=== PATIENT | male | born 1940 | race African-American/Black ===

== ENCOUNTER → 2016-09-18 | Day surgery (SDC) | payer MEDICARE, MEDICAID ==
[~2016-09-18] VITALS: Ht 175.3 cm; Wt 64.9 kg
[2016-09-18] VITALS (10 sets, daily range): BP systolic 108–176; BP diastolic 6–83
[~2016-09-18] MED LIST: AMLODIPINE BESY10 MG ORAL; AMLODIPINE BESY10 MG PO; ASPIRIN BUFFER325 M1 PO; BSS 15ml BTL ONE; BSS 500ml btl ONE; Bupivacaine 0.75% 30ml vial INJ ONE; CLONIDINE HCL0.1 MG PO; Ciprofloxacin Opth Soln ONE; Cyclopentolate 1% Opth Sol ONE; Dexamethasone 4mg/ml vial ONE; DiphenhydrAMINE 50mg/ml Inj IVP PRN; Goniosol 2.5% Opth Soln - 15ml ONE; Kenalog-40 1ml Vial ONE; LOPRESSOR25 M1 PO; Lidocaine 2% MPF 5ml Vial INJ ONE; Maxitrol Opth Oint 3.5gm ONE; Midazolam 2mg/2ml Inj ONE; NS Irrig 1000ml ONE; Phenylephrine 2.5% Op Soln ONE; Povidone-Iodine 5% opth solution ONE; Pred Forte 1% Opth Susp 1ml ONE; Proparacaine 0.5% Opth Soln 15ml ONE; Proparacaine 0.5% Opth Soln 15ml RIGHT EYE SCH; Propofol 10mg/ml 20ml IV ONE; RENAGEL800 MG; SENSIPAR60 MG PO; Sterile Water Irrig 1000ml IRRIG ONE; Tetracaine 0.5% Opth Soln ONE; Tropicamide 1% Opth Soln ONE; VIT D PO; fentaNYL 100 mcg/2 mL IV ONE; fentaNYL 100 mcg/2 mL IV PRN
[2016-09-18] MEDS: Tropicamide 1% Opth Soln RIGHT EYE SCH ×3 (07:37→07:51)
[2016-09-18] MEDS: Cyclopentolate 1% Opth Sol RIGHT EYE SCH ×3 (07:37→07:51)
[2016-09-18] MEDS: Phenylephrine 2.5% Op Soln RIGHT EYE SCH ×3 (07:37→07:51)
--- NOTE | 2016-09-18 08:20 | Pre-Procedure Note/Attestation ---
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 I attest that, if there was a reasonable possibility of needing a blood transfusion, the patient (or the patient's legal roofing sales representative) was given the [facility] standardized written summary, pursuant to the Salazar Huber Blood Safety Act ([place] Health and Safety Code # 1645, as amended). I attest that I re-evaluated the patient just prior to the surgery and that there has been no change in the patient's H&P, except as documented below: Sagar Freeman M.D. Sep 18, 2016 08:20
--- NOTE | 2016-09-18 08:23 | Brief Operative Note ---
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 Sep 18, 2016 08:23
--- NOTE | 2016-09-18 08:23 | Operative Note - PDOC ---
Operative Note Operative Note Pre-op Diagnosis: NCVH/PDR/possible TRD OD Procedure: PPV/EL/AFE/SF6 20% OD Post-op Diagnosis: NCH/PDR/severe retinal ischemia/CSME OD Surgeon: Pete Anesthesia: general Specimen: none Complications: none Condition: stable Estimated Blood Loss: minimal Drains: none Implant(s) used?: No Indications for Procedure The patient has vision loss due to proliferative diabetic retinopathy and NCVH and presents today for surgery. After review of the risks, benefits, alternative and the patient signed informed consent into the medical chart. The patient was met in the pre-op area where informed consent was reviewed. The operative eye was verified, marked and dilated. The patient was transferred to the operative suite, where cardiopulmonary monitoring was established and peribulbar anesthetic was administered without complications. The eye was prepped and draped in sterile ophthalmic fashion. Under microscope visualization the 23 gauge infusion line was placed inferotemporally. After visualization of the tip in the vitreous cavity, the infusion line was turned on. The superotemporal and superonasal cannulas were placed. Under ReSight visualization, peripheral and core vitrectomy was performed. As the vitreous was cleared, view of the posterior pole was improved. There were areas of neovascular tissue noted and severe peripheral vascular non-perfusion/ ischemia. Inspection of the posterior pole revealed macular exudates and edema. Further peripheral vitrectomy was performed and endolaser was applied to perform complete PRP. No iatrogenic breaks were noted. Air-fluid exchange was performed. Gas was infused into the eye. The cannulas were removed and sclerotomies were sutured. The eye maintained normal intraocular pressure. Subconjunctival vancomycin and dexamethasone were administered. The lid speculum was removed. The eye was cleaned of prep and drape. Atropine drop and Maxitrol ointment was applied. A pressure patch was placed. The patient was turned over to the anesthesia team and transferred in stable condition to the PACU. Description of Procedure The patient was met in the pre-op area where informed consent was reviewed. The operative eye was verified, marked and dilated. The patient was transferred to the operative suite, where cardiopulmonary monitoring was established and peribulbar anesthetic was administered without complications. The eye was prepped and draped in sterile ophthalmic fashion. Under microscope visualization the 23 gauge infusion line was placed inferotemporally. After visualization of the tip in the vitreous cavity, the infusion line was turned on. The superotemporal and superonasal cannulas were placed. Under ReSight visualization, peripheral and core vitrectomy was performed. As the vitreous was cleared, view of the posterior pole was improved. There were areas of neovascular tissue noted and severe peripheral vascular non-perfusion/ ischemia. Inspection of the posterior pole revealed macular exudates and edema. Further peripheral vitrectomy was performed and endolaser was applied to perform complete PRP. No iatrogenic breaks were noted. Air-fluid exchange was performed. Gas was infused into the eye. The cannulas were removed and sclerotomies were sutured. The eye maintained normal intraocular pressure. Subconjunctival vancomycin and dexamethasone were administered. The lid speculum was removed. The eye was cleaned of prep and drape. Atropine drop and Maxitrol ointment was applied. A pressure patch was placed. The patient was turned over to the anesthesia team and transferred in stable condition to the PACU. Sagar Freeman M.D. Sep 18, 2016 08:23
--- NOTE | 2016-09-18 08:45 | Anethesia Preoperative Eval ---
Anesthesia Pre-op PMH/ROS General Date of Evaluation: Sep 18, 2016 Time of Evaluation: 07:50 Anesthesiologist: Kuldeep ASA Score: ASA 3 Mallampati Score Class I : Soft palate, uvula, fauces, pillars visible Class II: Soft palate, uvula, fauces visible Class III: Soft palate, base of uvula visible Class IV: Only hard plate visible Mallampati Classification: Class II Surgeon: Pete Diagnosis: R eye vitreous hemorrhage Surgical Procedure: R eye PPV Anesthesia History: none Family History: no anesthesia problems Allergies: Coded Allergies: No Known Allergies (Verified , 08/18/13) Past Medical History Cardiovascular: Reports: HTN, Denies: CAD, NC, arrhythmia, other, valve dz Pulmonary: Denies: COPD, MARLIN, asthma, other Gastrointestinal/Genitourinary: Reports: ESRD - on HD last session 09/17, GERD, Denies: CRI, other Neurologic/Psychiatric: Reports: depression/anxiety, Denies: CVA, TIA, dementia, other Endocrine: Reports: DM - on insulin, Denies: hypothyroidism, other, steroids HEENT: Reports: cataract (L), cataract (R) Hematology/Immune: Reports: anemia, Denies: DVT, bleeding disorder, other Musculoskeletal/Integumentary: Reports: DJD, Denies: DDD, OA, RA, edema, other Other: other - malnourished PMH Narrative: as above PSxH Narrative: cataracts A/V shunt placement Anesthesia Pre-op Phys. Exam Physician Exam Last Vital Signs Date Time Temp Pulse Resp B/P Pulse Ox O2 Delivery O2 Flow Rate FiO2 09/18/16 07:52 98.6 73 18 166/73 100 Room Air Constitutional: NAD Neurologic: CN 2-12 intact Cardiovascular: RRR, no M/R/G Respiratory: CTA Gastrointestinal: S/NT/ND Airway Exam Mallampati Score: Class II MO: limited Neck: stiff ROM: limited Teeth: missing Dentures: no lower, no upper Anesthesia Pre-op A/P Studies Pre-op Studies: EKG - NSR Risk Assessment & Plan Assessment: ASA 3 Plan: GA with LMA Status Change Before Surgery: No Pre-Antibiotics Drug: none KALA CHAHAL M.D. Sep 18, 2016 08:45
--- NOTE | 2016-09-18 10:57 | Immediate Post-Op Evaluation ---
Immediate Post-Op Evalulation Immediate Post-Op Evalulation Procedure: R eye PPV fluid to gas exchange laser treatment Date of Evaluation: Sep 18, 2016 Time of Evaluation: 09:11 IV Fluids: 400 Blood Products: none Estimated Blood Loss: min Urinary Output: none Blood Pressure Systolic: 142 Blood Pressure Diastolic: 68 Pulse Rate: 64 Respiratory Rate: 20 O2 Sat by Pulse Oximetry: 98 Temperature (Fahrenheit): 97.4 Pain Score (1-10): 1 Nausea: No Vomiting: No Complications none Patient Status: reacts, patent, none Hydration Status: adequate KALA CHAHAL M.D. Sep 18, 2016 10:57
--- NOTE | 2016-09-18 10:59 | 48 Hour Post Anesthesia Eval ---
Post Anesthesia Evaluation Procedure: R eye PPV fluid to gas exchange laser treatment Date of Evaluation: Sep 18, 2016 Time of Evaluation: 10:57 Blood Pressure Systolic: 142 0: 65 Pulse Rate: 62 Respiratory Rate: 20 Temperature (Fahrenheit): 97.6 O2 Sat by Pulse Oximetry: 98 Airway: patent Nausea: No Vomiting: No Pain Intensity: 2 Hydration Status: adequate Cardiopulmonary Status: stable Mental Status/LOC: patient returned to baseline Follow-up Care/Observations: n/a Post-Anesthesia Complications: none Follow-up care needed: ready to discharge KALA CHAHAL M.D. Sep 18, 2016 10:59
--- NOTE | 2016-09-18 11:38 | Pre-op HX & Phy Repo 2 SIG ---
DATE OF ADMISSION: 09/18/2016 PRESURGICAL INTERNAL MEDICINE HISTORY AND PHYSICAL DATE OF EVALUATION: 09/18/2016 REASON FOR EVALUATION: I was asked by Dr. Sagar Freeman to see this 75-year-old male, who is going for elective surgery on the right eye. The patient has a vitreous hemorrhage in right eye, please see full description by Dr. Sagar Freeman, ophthalmology History and Physical. The patient was evaluated. Chart was reviewed. The patient is a resident of [facility] who has bilateral vitreous hemorrhage. PAST MEDICAL HISTORY: Remarkable for end-stage renal disease. The patient is on hemodialysis, last done yesterday 09/17/2016, history of cardiomyopathy and hypertension, history of chronic liver insufficiency, and history of constipation. History of type 2 diabetes, not on insulin, controlled by diet and dialysis. Denies history of respiratory problem. Denies history of heart attack. No chest pain. The patient has a peripheral vascular insufficiency and also parathyroid problem anemia. PAST SURGICAL HISTORY: Amputation of left toe and arteriovenous shunt in left arm. CURRENT MEDICATIONS: Include clonidine 0.1 mg three times a day, Sensipar daily, magnesium sulfate p.r.n., Norvasc p.r.n., aspirin 325 mg daily, and Robitussin artificial tears. ALLERGIES: Not known. SOCIAL HISTORY: Denies history of tobacco or alcohol use. Smokes marijuana on regular basis. FAMILY HISTORY: Mother of old age. PHYSICAL EXAMINATION: GENERAL: The patient is alert and oriented to person, time and place. VITAL SIGNS: Blood pressure 166/73, temperature 98.6 degrees, pulse 74 and regular, and O2 saturation 100% on room air. SKIN: Dry and warm. No rashes. LYMPHATICS: Lymph nodes not enlarged. HEENT: Head, normocephalic and atraumatic. Ears, clear. Eyes, full description per Dr. Sagar Freeman. Mouth, clear and moist. No teeth. No dentures. NECK: Supple. Thyroid gland not enlarged. No palpable mass. Lymph nodes are not enlarged. No jugular vein distention. HEART: Sinus rhythm. Sound distant. No S3 or S4. LUNGS: Clear. No rales or rhonchi. No lesions. ABDOMEN: Soft and benign. Liver and spleen not enlarged. No rebound. EXTREMITIES: A +1 edema. Peripheral pulses diminished in both feet. Left foot toe amputation. GENITOURINARY TRACT: CVA nontender. No discharge. The patient is on dialysis for chronic renal insufficiency. LABORATORY AND DIAGNOSTIC DATA: ECG, sinus rhythm at 69 per minute, normal sinus, left axis deviation, and medium voltage for left ventricular hypertrophy, septal MN old. Possible lateral MN, age undetermined. Blood sugar fingerstick 95 mg/dL. The rest of the laboratory pending. The patient did not eat or drink from last night. IMPRESSION: 1. Vitreous hemorrhage, right eye. 2. End-stage renal disease, on hemodialysis. Last dialysis 09/17/2016. 3. Diabetes mellitus type 2, not on medications. 4. Myocardial infarction by EKG. 5. Left ventricular hypertrophy. 6. Chronic constipation. 7. Chronic liver disease. 8. Hyperparathyroidism. 9. Hypertension, not adequately controlled. PLAN: Vitrectomy-23G gas injection endolaser right eye per Dr. Sagar Freeman. CONCLUSION: The patient has multiple medical problems include dialysis, renal insufficiency end stage, and history of diabetes mellitus. The patient is on hemodialysis. Laboratory work pending. The patient did not eat or drink from last night. The patient's condition optimized for surgery. Thank you very much, Dr. Freeman, for privilege to participate presurgical care of this interesting patient. Marli Casarez M.D. DR: Doyle JOB#: [id number] CC:
--- NOTE | 2016-09-22 08:48 | Cardiology Report ---
APPROVED REPORT EKG Measurement Heart [id number] Normal sinus rhythm Left axis deviation Minimal voltage criteria for LVH, may be normal variant Septal infarct, age undetermined Possible Lateral infarct, age undetermined Abnormal ECG
== END | disposition home or self-care (01) ==
LOC: SUR 07:04
DX: H43.11 Vitreous hemorrhage, right eye (principal); E11.3591 Type 2 diabetes mellitus with proliferative diabetic retinopathy without macular edema, right eye; H35.82 Retinal ischemia; I12.0 Hypertensive chronic kidney disease with stage 5 chronic kidney disease or end stage renal disease; N18.6 End stage renal disease; Z99.2 Dependence on renal dialysis; I42.9 Cardiomyopathy, unspecified; K76.9 Liver disease, unspecified; I73.9 Peripheral vascular disease, unspecified; E21.3 Hyperparathyroidism, unspecified; D64.9 Anemia, unspecified; K59.00 Constipation, unspecified; K21.9 Gastro-esophageal reflux disease without esophagitis; M19.90 Unspecified osteoarthritis, unspecified site; E46 Unspecified protein-calorie malnutrition; I25.2 Old myocardial infarction; F12.90 Cannabis use, unspecified, uncomplicated; I51.7 Cardiomegaly
CPT/HCPCS: 67040; 82962; 93005; J1100; J2250; J2704; J3010; J3301; J3370; J3490; 94003; 94150